=== PATIENT | female | born 1970 | race Caucasian/White ===

== ENCOUNTER 2019-02-26 08:43 | Emergency (ER) | payer BC ==
[~2019-02-26] VITALS: Ht 160 cm; Wt 58.1 kg
--- NOTE | 2019-02-26 08:55 | NUR ---
Patient to ER bed 4 to gown for evaluation. Side rails up. Report given to Saeid AGUIRRE.
--- NOTE | 2019-02-26 08:58 | NUR ---
Pt c/o rash since Tuesday.Pt denies change in routines.Pt denies med hx.
--- NOTE | 2019-02-26 09:05 | NUR ---
ER at bedside examining patient.
--- NOTE | 2019-02-26 09:06 | NUR ---
Pt admits to Lupus,remission for [employer].
[2019-02-26] MEDS ORDERED: EPINEPHrine 1 MG/ML AMP IM ONE (09:15)
[2019-02-26] MEDS ORDERED: FAMOTIDINE 20 MG TABLET PO ONE (09:15)
[2019-02-26] MEDS ORDERED: PREDNISONE 20 MG TABLET PO ONE (09:30)
--- NOTE | 2019-02-26 09:44 | NUR ---
Pt medicated tolerated well.
[2019-02-26 10:41] VITALS: BP_SYST 110
== END 2019-02-26 10:41 | disposition home or self-care (01) ==
LOC: SED 08:43
DX: L50.9 Urticaria, unspecified (principal); Z90.49 Acquired absence of other specified parts of digestive tract
CPT/HCPCS: 96372; 99283; J0171; J7512